=== PATIENT | female | born 1990 | race Hispanic/Latino ===

== ENCOUNTER 2024-06-27 19:26 | Day surgery (SDC) | payer OTHER ==
[2024-06-27 19:41] VITALS: BMI 37.3
[2024-06-27] MEDS ORDERED: hydrALAZINE 20 MG/ML VIAL SLOW IVP PRN (21:03)
[2024-06-27 21:14] LABS: Bilirubin Neg (Negative); Blood, Urine Negative (Negative); Clarity Clear (Clear); Glucose, Urine (Dipstick) >=1000 mg/dL (Negative); Ketone, Urine 5 mg/dL (Negative); Leukocyte Negative (Negative); Nitrite Negative (Negative); Protein, Urine (Dipstick) 15 mg/dl (Neg-Trace); Urobilinogen Normal mg/dL (Less than 2)
[2024-06-27 21:24] LABS: Bacteria/HPF Rare-Few HPF (None Seen); CAUTI Indications for Culture Pelvic or flank pain; RBC/HPF 0-3 HPF (0-3); Squamous Epithelial 0-3 HPF (0-3); WBC/HPF 0-3 HPF (0-3)
[2024-06-27 21:25] LABS: Urine Culture Reflex No No
[2024-06-27] MEDS: metroNIDAZOLE 500 MG TAB PO SCH (22:25)
== END 2024-06-27 22:26 | disposition home or self-care (01) ==
LOC: CSHLD/OP 19:26
PROVIDERS: ATTEND Family Medicine
DX: O47.03 False labor before 37 completed weeks of gestation, third trimester (principal); O23.593 Infection of other part of genital tract in pregnancy, third trimester; N89.8 Other specified noninflammatory disorders of vagina; B96.89 Other specified bacterial agents as the cause of diseases classified elsewhere; O24.419 Gestational diabetes mellitus in pregnancy, unspecified control; O99.283 Endocrine, nutritional and metabolic diseases complicating pregnancy, third trimester; E28.2 Polycystic ovarian syndrome; Z3A.31 31 weeks gestation of pregnancy; Z79.899 Other long term (current) drug therapy
CPT/HCPCS: 36416; 81001; 87480; 87510; 87660; 99285

== ENCOUNTER 2024-07-28 11:32 | Inpatient (IN) | payer OTHER ==
[2024-07-28] MEDS ORDERED: hydrALAZINE 20 MG/ML VIAL SLOW IVP PRN ×2 (11:40→13:30)
[2024-07-28] MEDS ORDERED: Tranexamic Acid 1,000 MG/10 ML VIAL IVP PRN (13:30)
[2024-07-28] MEDS ORDERED: Misoprostol 200 MCG TAB PR PRN (13:30)
[2024-07-28] MEDS ORDERED: Lidocaine 1% (PF) 30 ML VIAL SC PRN (13:30)
[2024-07-28] MEDS ORDERED: fentaNYL 50 mcg/mL 1 mL Vial SLOW IVP PRN (13:30)
[2024-07-28] MEDS ORDERED: Diphenoxylate HCl/Atropine Tablet PO PRN ×2 (13:30)
[2024-07-28] MEDS ORDERED: Promethazine HCl 25 MG/ML VIAL IM PRN (13:30)
[2024-07-28] MEDS ORDERED: Acetaminophen 500 MG TAB PO PRN (13:30)
[2024-07-28] MEDS ORDERED: Carboprost 250 MCG/ML AMP IM PRN (13:30)
[2024-07-28] MEDS ORDERED: Oxytocin 30 units/NS 500 ML 500 ML IV SCH (13:30)
[2024-07-28 13:33] LABS: #Basophils 0.03 10x3/uL (0.0-0.2); #Eosinophils 0.04 10x3/uL (0.0-0.5); #Monocytes 0.57 10x3/uL (0.0-1.1); %Basophils 0.3 % (0.0-2.0); %Eosinophils 0.5 % (0.0-6.0); %Lymphocytes 20.2 % (18.0-47.0); %Monocytes 6.6 % (0.0-10.0); %Neutrophils 72.2 % (40.0-75.0); Hematocrit 40.4 % (34.9-44.5); Hemoglobin 14.4 g/dL (12.0-15.5); Mean Corpuscular HGB CONC 35.6 g/dL (32.0-36.0); Mean Corpuscular Hemoglobin 32.1 pg (27.0-33.0); Mean Corpuscular Volume 90.2 fL (81.6-98.3); Mean Platelet Volume 12.1 fL (7.4-10.4); Platelet Count 200 10x3/uL (150-450); RBC Distribution Width 12.4 % (11.5-14.5); Red Blood Cell (RBC) Count 4.48 10x6/uL (3.90-5.03)
[2024-07-28] MEDS ORDERED: HYDROcodone/Acetaminophen 5/325 mg Tablet PO PRN ×2 (13:37)
[2024-07-28] MEDS ORDERED: Ibuprofen 800 MG TAB PO PRN (13:37)
[2024-07-28 13:45] LABS: Creatinine, Urine 99.24 mg/dL (16.00-327.00)
[2024-07-28 13:46] LABS: ALT (SGPT) 18 U/L (Less than 34); AST (SGOT) 17 U/L (11-34); Albumin 3.3 g/dL (3.1-4.5); Alkaline Phosphatase 96 U/L (40-110); Anion Gap 12 mmol/L (10-20); BUN (Urea Nitrogen) 9 mg/dL (7.0-18.7); Bilirubin, Total 0.2 mg/dL (0.3-1.2); Calc. Creatinine Clearance 0 mL/min (70-130); Calcium 9.4 mg/dL (7.8-10.44); Carbon Dioxide 21 mmol/L (22-29); Chloride 108 mmol/L (98-107); Estimated GFR 126; Globulin 3.1 g/dL (2.4-3.5); Glucose 133 mg/dL (70-105); Potassium 4.2 mmol/L (3.5-5.1); Protein, Total 6.4 g/dL (6.0-8.3); Sodium 137 mmol/L (136-145)
[2024-07-28 14:46] VITALS: BMI 39.4
[2024-07-28 16:54] LABS: Hep B Surf Ag - L&D Non-Reactive S/CO (NonReactive)
[2024-07-28 16:55] LABS: Syphilis Antibody Nonreactive (Nonreactive); Syphilis Antibody Index 0.04 S/CO (<1.00 Non-Reactive)
[2024-07-28] MEDS: Misoprostol 100 MCG TAB VAG SCH (20:10)
[2024-07-29] MEDS: Oxytocin 30 units/NS 500 ML 500 ML IV SCH (06:40)
[2024-07-29] MEDS ORDERED: Bupivacaine 0.25% HCL 30 ML VIAL ONE (08:00)
[2024-07-29] MEDS ORDERED: Penicillin G 2.5 MILL.units 2.5 MILL.UNITS in Premix 1 BAG IVPB SCH (09:15)
[2024-07-29] MEDS: Penicillin G Potassium 5 MILL.UNITS in Sodium Chloride 0.9% 100 ML IVPB SCH (09:23)
[2024-07-29] MEDS: fentaNYL/Ropivacaine Epidural 100 ML ONE (10:23)
[2024-07-29] MEDS ORDERED: Acetaminophen 325 MG TAB PO PRN (10:31)
[2024-07-29] MEDS ORDERED: diphenhydrAMINE 50 MG/ML VIAL IVP PRN (10:31)
[2024-07-29] MEDS ORDERED: Naloxone HCl 0.4 mg/ml Vial IVP PRN ×2 (10:31)
[2024-07-29] MEDS ORDERED: Lactated Ringer's 500 ML IV PRN (10:31)
[2024-07-29] MEDS ORDERED: ePHEDrine Sulfate 50 MG/10 ML VIAL SLOW IVP PRN (10:31)
[2024-07-29] MEDS ORDERED: Ondansetron PF 4 MG/2 ML Vial IVP PRN ×2 (10:31→16:40)
[2024-07-29] MEDS ORDERED: Moisturizing Cream (Eucerin) 113 GM JAR TOP PRN (10:31)
[2024-07-29] MEDS ORDERED: Promethazine HCl 25 MG/ML VIAL IM PRN ×2 (10:31→16:40)
[2024-07-29] MEDS: Lactated Ringer's 1,000 ML IV SCH (10:35)
[2024-07-29] MEDS ORDERED: fentaNYL 2 mcg/Ropivacaine 0.2% Epidural 100 ML CADD EPIDURAL SCH (10:45)
[2024-07-29] MEDS ORDERED: Communication Order-Pharmacy FS SCH (10:45)
[2024-07-29] MEDS: Penicillin G 2.5 MILL.units 2.5 MILL.UNITS in Premix 1 BAG IVPB SCH (13:05)
[2024-07-29] MEDS: Methylergonovine 0.2 MG/ML VIAL ONE (14:32)
[2024-07-29] MEDS ORDERED: CEFAZOLIN 1 GM VIAL SLOW IVP SCH (15:00)
[2024-07-29] MEDS ORDERED: Azithromycin 500 MG in Syringe 0 ML IVPB SCH (15:15)
[2024-07-29] MEDS: Ondansetron PF 4 MG/2 ML Vial IVP PRN (15:16)
[2024-07-29] MEDS: Azithromycin 500 MG in Sodium Chloride 0.9% 250 ML 250 ML IVPB SCH (15:16)
[2024-07-29] MEDS: CEFAZOLIN 2 GM in Sodium Chloride 0.9% 100 ML IVPB SCH (16:34)
[2024-07-29] MEDS ORDERED: Bisacodyl 10 MG SUPP PR PRN (16:40)
[2024-07-29] MEDS ORDERED: hydrALAZINE 20 MG/ML VIAL SLOW IVP PRN (16:40)
[2024-07-29] MEDS ORDERED: diphenhydrAMINE 25 MG CAP PO PRN (16:40)
[2024-07-29] MEDS ORDERED: Lanolin Ointment 7 GM TUBE TOP PRN (16:40)
[2024-07-29] MEDS ORDERED: Benzocaine-Menthol 82.5 ML CAN TOP PRN (16:40)
[2024-07-29] MEDS ORDERED: Milk Of Magnesia 30 ML UDCUP PO PRN (16:40)
[2024-07-29] MEDS: Boostrix 0.5 ML (Tdap) VIAL (>/=7 yrs of age) IM ONE (17:42)
[2024-07-29] MEDS: Ferrous Sulfate 325 MG TAB PO SCH (17:42)
[2024-07-29] MEDS: Ibuprofen 800 MG TAB PO SCH (21:20)
[2024-07-29] MEDS: Docusate 100 MG CAP PO SCH (21:20)
[2024-07-30] MEDS: HYDROcodone/Acetaminophen 5/325 mg Tablet PO PRN (04:09)
[2024-07-30] MEDS: Prenatal Vitamin 1 TAB PO SCH (08:20)
[2024-08-01 07:59] VITALS: BP 126/60; TEMP 98.9
== END 2024-08-01 13:00 | disposition home or self-care (01) | DRG 806 ==
LOC: CSHLD/OP 11:32 → CSHLD 19:50 → CSHPP 07-29 17:10
PROVIDERS: ADMIT Family Medicine; ATTEND Family Medicine
PROC: 10E0XZZ Delivery of Products of Conception, External Approach (ICD-10-PCS; principal; 2024-07-29)
PROC: 10D17Z9 Manual Extraction of Products of Conception, Retained, Via Natural or Artificial Opening (ICD-10-PCS; 2024-07-29)
DX: O36.8130 Decreased fetal movements, third trimester, not applicable or unspecified (principal); O41.03X0 Oligohydramnios, third trimester, not applicable or unspecified; O24.420 Gestational diabetes mellitus in childbirth, diet controlled; Z37.0 Single live birth; Z3A.36 36 weeks gestation of pregnancy
CPT/HCPCS: 36415; 36416; 51702; 76819; 80053; 82570; 84156; 85025; 86780; 86850; 86900; 86901; 87340; 99285; J0456; J0665; J2210; J2405; J2540; J2590; J7050; J7120